=== PATIENT | female | born 1950 | race Caucasian/White ===

== ENCOUNTER → 2023-04-04 13:10 | Outpatient (BNVA) | payer MEDICARE, SELFPAY | PROVIDERS: Visit Provider Nurse Practitioner Family | DX: R05.9 Cough, unspecified (principal); R32 Unspecified urinary incontinence | CPT/HCPCS: 81000; 87426 ==

== ENCOUNTER 2023-04-14 11:38 | Emergency (ER) | payer MEDICARE, SELFPAY ==
[2023-04-14 11:44] VITALS: BMI 25.8
[2023-04-14 11:48] VITALS: BP 132/64; PULSE 76; RESP 16; TEMP 37.7; O2SAT 93
--- NOTE | 2023-04-14 12:18 | XR_ITS ---
WS: [id number] Exam: XR chest 1V portable [id number] Date/Time of Exam: 04/14/2023 12:18 PM Reason For Exam: dyspnea/cough No priors. There is diffuse groundglass infiltrate in the upper lobe of the RIGHT lung and also probably within the lingular segment of the LEFT upper lobe. Remaining lung turner are clear. No pleural effusions. N o pneumothorax. Enlarged RIGHT hilum. Heart size is normal. The superior mediastinum is normal in con tour. Bony structures are intact. IMPRESSION: 1. Diffuse groundglass infiltrate in the RIGHT upper lobe and also probably within the lingula. This may represent active pneumonia or chronic change. 2. Enlarged RIGHT pulmonary hilum. A mass is not excluded. Recommendations: Contrast CT scan of the chest recommended for further work-up.
[2023-04-14 13:49] VITALS: PULSE 70; O2SAT 92
--- NOTE | 2023-04-14 13:55 | W.ED.SOB ---
HPI - SOB/Dyspnea General: Chief Complaint: Shortness of Breath/Dyspnea Stated Complaint: low o2, cancer pt, Time Seen by Provider: 04/14/23 12:18 Source: patient Mode of arrival: ambulatory History of Present Illness: HPI Narrative: 72-year-old female presents emergency room with complaint of cough congestion 9 days ago she tested positive for COVID. She has not had any hemoptysis she is noticed that she still is feeling poorly particularly at night runs a low-grade fever has continued nonproductive cough. Generalized myalgias and aches. She has a history of cancer and she is currently on oral antineoplastic drugs but she is holding them because of the COVID. They have been checking her sats intermittently at home and at times she will drop around 90 at night. MD elicited complaint: shortness of breath and cough Exacerbating factors: exertion and coughing Associated symptoms: Reports chest congestion, cough, dizziness, fever(s), lightheadedness and nausea; Deny abdominal pain, chest pain, diaphoresis, extremity pain, hemoptysis, myalgias, orthopnea, palpitations, paresthesias, polydipsia, polyuria, rash, sense of impending doom, syncope or vomiting Treatment prior to arrival: none Review of Systems Const: Reports: fever(s) and chills; Denies: diaphoresis ENMT: Denies: throat pain, ear or mastoid pain, nasal discharge or nasal congestion Card: Reports: lightheadedness; Denies: chest pain, palpitations, syncope or orthopnea Resp: Reports: chest congestion; Denies: hemoptysis GI: Reports: nausea; Denies: abdominal pain or vomiting : Denies: flank pain, difficulty voiding, dysuria, urinary frequency or urinary urgency Musc: Denies: extremity pain Skin/Breast: Denies: rash or pruritus Neuro: Reports: headache(s) and dizziness Endo: Denies: polyuria or polydipsia Physical Exam Const: COMMON NORMALS: no acute distress GENERAL APPEARANCE: cooperative and comfortable ORIENTATION/CONSCIOUSNESS: Yes awake, Yes oriented to person, Yes oriented to place and Yes oriented to time HENMT: COMMON NORMALS: normocephalic, atraumatic and hearing grossly normal bilaterally HEAD & SCALP: normocephalic and atraumatic Resp: COMMON NORMALS: normal respiratory effort, No retractions and No use of accessory muscles AUSCULTATION: wheezes Cardio: COMMON NORMALS: regular rate, regular rhythm and No murmurs present (Cardio) RATE: regular rate RHYTHM: regular rhythm GI: COMMON NORMALS: Soft to palpation and No hepatosplenomegaly present AUSCULTATION: Yes normoactive bowel sounds PALPATION: Yes Soft to palpation, No Tenderness to palpation present (GI), No Guarding due to palpation present (GI) and Yes No hepatosplenomegaly present Extremity: COMMON NORMALS: normal to inspection, capillary refill normal, no clubbing, cyanosis or edema, no calf tenderness and no pedal edema Neuro: SENSORIUM/ORIENTATION: Yes oriented to person, Yes oriented to place and Yes oriented to time Skin: COMMON NORMALS: no rashes or lesions noted GENERAL SKIN EXAM: no rashes or lesions noted Course Vital Signs: Vital signs: Vital Signs Temperature 99.8 F H 04/14/23 11:48 Pulse Rate 70 04/14/23 13:49 Respiratory Rate 16 04/14/23 11:48 Blood Pressure 132/64 04/14/23 11:48 Pulse Oximetry 92 04/14/23 13:49 Oxygen Delivery Me thod Room Air 04/14/23 13:49 MDM - SOB/Dyspnea Medical Decision Making Labs and imaging reviewed. CTA shows no PE Home O2 evaluation patient actually improves her oxygen sat with ambulation. Usual course of COVID. Contact her oncology team for recommendations about resuming her antineoplastics. If any worsening or change symptoms recheck. Medical Records I reviewed the patient's medical records. Lab Data I reviewed the patient's lab results. 04/14/23 13:55 04/14/23 13:55 Labs/Radiology: Laboratory Results WBC 5.21 10^3/uL (3.29-11.43) 04/14/23 13:55 RBC 4.99 10^6/uL (3.85-5.65) 04/14/23 13:55 Hgb 14.00 g/dL (11.27-16.99) 04/14/23 13:55 Hct 42.4 % (36-47) 04/14/23 13:55 MCV 85.0 fl (85-98) 04/14/23 13:55 MCH 28.1 pg (27-33) 04/14/23 13:55 MCHC 33.0 g/dL (30-55) 04/14/23 13:55 RDW 13.2 % (12.1-15.1) 04/14/23 13:55 Plt Count 133 10^3/cmm (157-399) L 04/14/23 13:55 MPV 11.8 fL (7.4-10.4) H 04/14/23 13:55 Neut % (Auto) 72.1 % 04/14/23 13:55 Lymph % (Auto) 17.9 % 04/14/23 13:55 [place] % (Auto) 9.2 % 04/14/23 13:55 Eos % (Auto) 0.2 % 04/14/23 13:55 Baso % (Auto) 0.2 % 04/14/23 13:55 Neut # (Auto) 3.76 10^3/uL (1.8-7.7) 04/14/23 13:55 Lymph # (Auto) 0.9 10^3/uL (0.8-4.8) 04/14/23 13:55 [place] # (Auto) 0.5 10^3/uL (0.2-0.9) 04/14/23 13:55 Eos # (Auto) 0.0 10^3/uL (0.0-0.8) 04/14/23 13:55 Baso # (Auto) 0.0 10^3/uL (0.0-0.1) 04/14/23 13:55 Nucleated RBC % (auto) 0 % 04/14/23 13:55 Nucleated RBCs # 0.0 /100WBC 04/14/23 13:55 Sodium 133 mmol/L (136-145) L 04/14/23 13:55 Potassium 4.3 mmol/L (3.5-5.1) 04/14/23 13:55 Chloride 97 mmol/L (98-107) L 04/14/23 13:55 Carbon Dioxide 28 mmol/L (22-29) 04/14/23 13:55 Anion Gap 12.3 (5-19) 04/14/23 13:55 BUN 12 mg/dL (8-23) 04/14/23 13:55 Creatinine 0.8 mg/dL (0.5-0.9) 04/14/23 13:55 GFR Calculation Not Reportable 04/14/23 13:55 Glucose 226 mg/dL (65-115) H 04/14/23 13:55 Calculated Osmolality 283 mOsm/kg (285-295) L 04/14/23 13:55 Calcium 9.0 mg/dL (8.5-10.5) 04/14/23 13:55 Total Bilirubin 0.4 mg/dL (0.15-1.2) 04/14/23 13:55 AST 16 U/L (0-32) 04/14/23 13:55 ALT 12 U/L (0-33) 04/14/23 13:55 Alkaline Phosphatase 48 U/L (35-105) 04/14/23 13:55 Total Protein 6.6 g/dL (6.6-8.7) 04/14/23 13:55 Albumin 3.8 g/dL (3.5-5.2) 04/14/23 13:55 Globulin 2.8 g/dL (1.3-4.6) 04/14/23 13:55 Discharge Plan Discharge Patient Disposition: Home Clinical Impression: COVID-19 Condition: Stable Prescriptions: New albuterol sulfate 90 mcg/actuation HFA aerosol inhaler 2 inh INHALATION Q4H PRN (Reason: shortness of breath or wheezing) Qty: 18 0RF No Action Imbruvica 280 mg tablet 280 mg PO DAILY gabapentin 600 mg Tablet 900 mg PO TID metformin 850 mg Tablet 850 mg PO BID [place] 10-325 mg Tablet 1 tab PO Q6H PRN (Reason: Pain) Calcium 600 600 mg calcium (1,500 mg) Tablet 600 mg PO DAILY levothyroxine 50 mcg Tablet 50 mcg PO QAM atenolol 50 mg Tablet 50 mg PO QAM insulin aspart U-100 100 unit/mL (3 mL) Insulin Pen See Rx Instructions .ROUTE .COMPLEX Rx Instructions: SLIDING SCALE TID Lantus Solostar U-100 Insulin 100 unit/mL (3 mL) Insulin Pen 30 unit SUBCUT BID potassium gluconate 595 mg (99 mg) Tablet 595 - 1,190 mg PO DAILY Linzess 145 mcg Capsule 145 mcg PO DAILY Discharge Orders: Discharge ED (Routine); Ordered 04/14/23 Ordered By: Hamilton Israel Discharge Diet: Usual diet Discharge Activity: Increase activity as tolerated Patient Instructions: COVID-19 (Coronavirus Disease 2019) (ED), Opioid Safety, Pain Management Coding Level of Care Code ED Assistant Merchandise Manager for Areli Brown
[2023-04-14 14:07] LABS: Basophils % 0.2 %; Eosinophils % 0.2 %; Hematocrit 42.4 % (36-47); Lymphocytes # 0.9 10^3/uL (0.8-4.8); Lymphocytes % 17.9 %; Mean Corpuscular Hemoglobin 28.1 pg (27-33); Mean Platelet Volume 11.8 fL (7.4-10.4); Monocytes # 0.5 10^3/uL (0.2-0.9); Monocytes % 9.2 %; Neutrophils # 3.76 10^3/uL (1.8-7.7); Neutrophils % 72.1 %; Nucleated Red Blood Cells % 0 %; Platelet Count 133 10^3/cmm (157-399); Red Blood Count 4.99 10^6/uL (3.85-5.65); Red Cell Distribution Width 13.2 % (12.1-15.1); White Blood Count 5.21 10^3/uL (3.29-11.43)
[2023-04-14 14:27] LABS: Alanine Aminotransferase 12 U/L (0-33); Albumin Level 3.8 g/dL (3.5-5.2); Alkaline Phosphatase 48 U/L (35-105); Anion Gap 12.3 (5-19); Aspartate Amino Transferase 16 U/L (0-32); Blood Urea Nitrogen 12 mg/dL (8-23); Carbon Dioxide 28 mmol/L (22-29); Chloride 97 mmol/L (98-107); Globulin 2.8 g/dL (1.3-4.6); Glucose 226 mg/dL (65-115); Osmolality Calculated 283 mOsm/kg (285-295); Potassium 4.3 mmol/L (3.5-5.1); Sodium 133 mmol/L (136-145); Total Bilirubin 0.4 mg/dL (0.15-1.2); Total Protein 6.6 g/dL (6.6-8.7)
--- NOTE | 2023-04-14 14:30 | CT_ITS ---
WS: [id number] CT CHEST ANGIOGRAPHY WITH REFORMATS HISTORY: covid - dyspnea TECHNIQUE: Contiguous axial images are obtained through the chest during arterial injection of intrav enous contrast. Images are reconstructed to evaluate the pulmonary arteries. MIP imaging also reviewe d. All CT scans at [facility] use at least one of these dose optimization techniques: automat ed exposure control; mA and/or kV adjustment per patient size (includes targeted exams where dose is matched to clinical indication); or iterative reconstruction. CONTRAST: Omnipaque 350; 100 mL IV. DLP: 462.33 mGy.cm COMPARISON: None available. Good opacification of the pulmonary artery. No filling defects. Normal sized pulmonary artery. Very m inimal atherosclerosis aorta. No aneurysm. Heart is normal size. No pericardial or pleural effusions. Bilateral multi lobar scattered irregular opacifications but greatest throughout the RIGHT lung. Cons istent with pneumonitis. No pneumothorax. Extensive mediastinal and hilar lymphadenopathy. Largest ly mph nodes in the hilar regions. The largest lymph node on the RIGHT measures 2.4 x 2.0 cm. Bilateral hilar lymph nodes with smaller subcarinal and paratracheal lymph nodes. There are additional small bu t increased number of axillary lymph nodes and a few small lymph nodes in the inferior soft tissues o f the neck. Moderate size hiatal hernia. Spleen is normal size at 11.5 cm. Prior cholecystectomy. Mild increase in thoracic kyphosis. IMPRESSION: 1. No pulmonary embolism. 2. Scattered bilateral pulmonary opacifications consistent with pneumonitis. May be related to histor y of COVID. 3. Mediastinal and hilar lymphadenopathy. Largest lymph nodes in the hilar regions. Largest lymph RIG HT hilar measures 2.4 x 2.0 cm. There are additional numerous but small axillary lymph nodes and a fe w small nodes within the inferior neck. These may be all reactive but due to the significant increase in size suggest follow-up after acute pneumonia resolves for surveillance. Neoplasm such as lymphoma should also be considered.
== END 2023-04-14 16:12 | disposition home or self-care (01) ==
PROVIDERS: Emergency Provider Family Medicine
DX: U07.1 COVID-19 (principal); Z79.84 Long term (current) use of oral hypoglycemic drugs; Z79.4 Long term (current) use of insulin
CPT/HCPCS: 71045; 71275; 80053; 85025; 87040; 99285; Q9967